=== PATIENT | male | born 1980 | race Caucasian/White ===

== ENCOUNTER → 2018-12-14 | Outpatient (CLI) | payer OTHER ==
--- NOTE | 2018-12-14 12:14 | CONS ---
CONSULTATION DATE OF SERVICE: 12/14/2018 This 38-year-old gentleman has been evaluated in the sleep center for obstructive sleep apnea-hypopnea syndrome. HISTORY OF PRESENT ILLNESS/SLEEP WAKE EVALUATION: Patient had been diagnosed with obstructive sleep apnea about 5 years ago in another institution by it probably was in [facility]. Since that time, patient is on treatment with CPAP every night for the whole night. Since the sleep study he lost weight from around 265 pounds down to 240 pounds, which is about 25 pounds losing of weight. Presently his sleep schedule from 11 p.m. to 5:30 a.m. basically 7 days a week. No problem with falling asleep. No TV in bedroom. Patient wakes up from sleep once. Presently he has episodes of snoring while he is using CPAP equipment. [place] Sleepiness Scale is 4. The patient's CPAP unit had been fixed around 7 months ago. I checked CPAP unit. Pressure is 7 cm of water. Usage is 27/30 nights for more than 4 hours, average 5.8 hours per night. The machine does not have information about breathing during the sleep. PAST MEDICAL HISTORY: Hypertension, anxiety with episodes of panic attacks. MEDICATIONS: Celexa, lisinopril and amlodipine. PAST SURGICAL HISTORY: None. SOCIAL HISTORY: Positive for smoking 1 pack for about 10 years. Patient continues smoking now. Alcohol consumption about 1 beer with dinner every night. FAMILY HISTORY: Hypertension. REVIEW OF SYSTEMS: Snoring while on treatment with CPAP. PHYSICAL EXAMINATION: During physical exam, gentleman without distress. VITAL SIGNS: BP 138/81, HR 70, RR 16, height 6 feet 1 inch, weight 240 pounds, body mass index 31.6, temperature 98.4, oxygen saturation on room air 100%. HEENT: PERRLA, EOMI. Oropharynx moderately low position of soft palate. Restriction of nasal breathing bilaterally. NECK: Supple, no JVD. Thyroid is not palpable. LUNGS: Clear to percussion and to auscultation. Good air exchange. No wheezing or rhonchi. HEART : S1, S2 regular. No murmurs, gallops, or rubs. ABDOMEN: Soft and nontender. Bowel sounds are present. No organomegaly appreciated. EXTREMITIES: No clubbing or cyanosis. SHREDDING FLOOR EQUIPMENT OPERATOR: Awake, alert, and oriented X3. Cranial nerves 2 to 7 intact. There is no fasciculation or atrophy. noted. No focal deficits observed. IMPRESSION: 1. Obstructive sleep apnea-hypopnea syndrome for 5 years. The patient is on treatment with CPAP demonstrated great compliance with treatment, but has snoring while using CPAP equipment. 2. Restriction of nasal breathing moderately low position of soft palate. Wide neck. 3. Mild obesity; body mass index 31.6. The patient lost 25 pounds since previous sleep studies which was done in another institution. 4. Hypertension. 5. History of anxiety with episodes of panic attacks. PLAN: 1. Repeat CPAP titration for re-evaluation of effective CPAP pressure at the present time after patient lost weight and because he has snoring while using his CPAP equipment. 2. Prescription for all necessary CPAP supplies. 3. The patient should get new CPAP unit after CPAP titration will be done. 4. Precautions related to driving. No driving if feeling sleepiness. 5. Patient was fitted with a full face mask Rosalee. Thank you very much for referring this patient for consultation. Sincerely, Dileep Marino MD, PhD, FAASM Diplomat of [place] [employer] [place] [employer] Supervisor [employer] [facility] [place] MMODL / IJN: [id number] /
== END | disposition home or self-care (01) ==
LOC: SLEEP 11:01
PROVIDERS: ATTEND Internal Medicine
DX: G47.33 Obstructive sleep apnea (adult) (pediatric) (principal); E66.9 Obesity, unspecified; I10 Essential (primary) hypertension; F41.0 Panic disorder [episodic paroxysmal anxiety]; F17.210 Nicotine dependence, cigarettes, uncomplicated; Z68.31 Body mass index [BMI] 31.0-31.9, adult; Z99.89 Dependence on other enabling machines and devices; Z79.899 Other long term (current) drug therapy
CPT/HCPCS: 99211

== ENCOUNTER → 2019-04-04 | Outpatient (CLI) | payer OTHER ==
--- NOTE | 2019-04-04 14:28 | SFUN ---
SLEEP CENTER FOLLOW UP NOTE DATE OF SERVICE: 04/04/2019 A 39-year-old gentleman who has been followed in the Sleep Center for treatment of obstructive sleep apnea-hypopnea syndrome. During previous visit, I wrote for the patient a prescription for all necessary CPAP supplies. He started to use his CPAP unit but feels significant leak from his mask. I checked his CPAP unit, usage is 24/30 nights for more than 4 hours. CPAP pressure is 7 cm of water. CPAP unit does not have information about apnea-hypopnea index. Patient has Rosalee View mask and we fit patient with Dream Wear mask. This mask, no significant leak is present. [place] Sleepiness Scale today is 12. MEDICATIONS: Lasix, Celexa, lisinopril. PHYSICAL EXAM: Patient in no distress. BP 137/79, HR 78, RR 16, height 6 feet 1 inches. Weight 239 pounds. Body mass index 31.5, temperature 98.4, oxygen saturation at room air 98%. OROPHARYNX: Moderately low position of soft palate. Neck Supple, no JVD. Thyroid is not palpable. LUNGS Clear to percussion and to auscultation. Good air exchange. No wheezing or rhonchi. HEART S1, S2 regular. No murmurs, gallops, or rubs. ABDOMEN Soft and nontender. Bowel sounds are present. No organomegaly appreciated. EXTREMITIES No clubbing or cyanosis. HEALTHCARE PROJECT MANAGER Awake, alert, and oriented X3. Cranial nerves 2 to 7 intact. There is no fasciculation or atrophy. noted. No focal deficits observed. IMPRESSION: 1. Obstructive sleep apnea-hypopnea syndrome. Patient demonstrated good compliance with treatment, but has problems with his CPAP mask/. 2. Mild obesity. 3. Hypertension. 4. History of anxiety and chronic panic attacks. 5. Some restriction of nasal breathing. PLAN: 1. We will provide the patient with Dream Wear full-face mask which goes under the nose. 2. Patient will continue to use CPAP equipment every night for the whole night. 3. Watching and losing weight. 4. Sleep hygiene with regular time in bed for at least 7-1/2 to 8 hours. 5. No driving if feeling sleepiness. Thank you very much for allowing me to participate in the management of your patient. Sincerely, Dileep Marino MD, PhD, FAASM Diplomat of [place] [employer] [place] [employer] Sample Selector of [facility] [place] MMMARIA ESTHERL / PETRAN: [id number] /
== END | disposition home or self-care (01) ==
LOC: SLEEP 13:05
PROVIDERS: ATTEND Internal Medicine
DX: G47.33 Obstructive sleep apnea (adult) (pediatric) (principal); E66.9 Obesity, unspecified; I10 Essential (primary) hypertension; J34.9 Unspecified disorder of nose and nasal sinuses; Z68.31 Body mass index [BMI] 31.0-31.9, adult; Z86.59 Personal history of other mental and behavioral disorders; Z99.89 Dependence on other enabling machines and devices